=== PATIENT | female | born 1990 | race Caucasian/White ===

== ENCOUNTER 2019-04-13 18:54 | Inpatient (IN) | payer MEDICAID ==
[2019-04-13] MEDS ORDERED: LACTATED RINGER'S 1,000 ML IV (20:46)
[2019-04-13 21:42] LABS: ADD UMIC NO; UR ASCORBIC ACID NEGATIVE (NEGATIVE); UR BILIRUBIN (Dip) NEGATIVE (NEGATIVE); UR BLOOD (Dip) NEGATIVE (NEGATIVE); UR CLARITY CLEAR (CLEAR); UR COLOR COLORLESS (YELLOW); UR GLUCOSE (Dip) 1+ mg/dL (NEGATIVE); UR KETONES (Dip) NEGATIVE (NEGATIVE); UR LEUKOCYTE ESTERASE (Dip) NEGATIVE Leu/ul (NEGATIVE); UR NITRITE (Dip) NEGATIVE (NEGATIVE); UR SPECIFIC GRAVITY (Dip) 1.002 (1.003-1.030); UR TOTAL PROTEIN (Dip) NEGATIVE (NEGATIVE); UR UROBILINOGEN (Dip) NEGATIVE (NEGATIVE)
[2019-04-13 22:44] LABS: ADD MAN DIFF? NO
[2019-04-13 22:48] LABS: WHITE BLOOD COUNT 14.4 10^3/ul (4.8-10.8)
[2019-04-13 22:48] LABS: BASOPHIL # 0.1 10^3/ul (0.0-0.1); BASOPHILS % 0.7 % (0.0-2.0); EOSINOPHILS # 0.1 10^3/ul (0.0-0.5); EOSINOPHILS % 0.8 % (0.0-7.0); HEMOGLOBIN 11.4 g/dl (12.0-16.0); LYMPHOCYTES # 3.6 10^3/ul (0.8-2.9); LYMPHOCYTES % 24.7 % (15.0-51.0); MEAN CORPUSCULAR HEMOGLOBIN 32.7 pg (29.0-33.0); MEAN CORPUSCULAR HGB CONC 33.5 g/dl (32.0-37.0); MEAN CORPUSCULAR VOLUME 97.4 fl (82.0-101.0); MEAN PLATELET VOLUME 10.8 fl (7.4-10.4); MONOCYTE # 1.1 10^3/ul (0.3-0.9); MONOCYTES % 7.7 % (0.0-11.0); NEUTROPHIL # 9.4 10^3/ul (1.6-7.5); NEUTROPHILS % 65.1 % (39.0-77.0); PLATELET COUNT 279 10^3/UL (140-415); RED BLOOD COUNT 3.49 10^6/ul (4.20-5.40); RED CELL DISTRIBUTION WIDTH 13.1 % (11.5-14.5)
[2019-04-13 23:08] LABS: PARTIAL THROMBOPLASTIN TIME 29.1 Sec (23.0-35.0); PROTIME 13.3 Sec (11.9-14.9)
[2019-04-13 23:11] LABS: ALANINE AMINOTRANSFERASE 25 IU/L (13-69); ALBUMIN 3.4 g/dl (3.3-4.9); ALBUMIN/GLOBULIN RATIO 0.97; ALKALINE PHOSPHATASE 78 IU/L (42-121); ANION GAP 7 (5-13); ASPARTATE AMINO TRANSFERASE 31 IU/L (15-46); BILIRUBIN,INDIRECT 0.4 mg/dl (0-1.1); BILIRUBIN,TOTAL 0.4 mg/dl (0.2-1.3); BLOOD UREA NITROGEN 5 mg/dl (7-20); CALCIUM 8.7 mg/dl (8.4-10.2); CARBON DIOXIDE 24 mmol/L (21-31); CHLORIDE 108 mmol/L (97-110); CREATININE 0.47 mg/dl (0.44-1.00); Estimated GFR > 60 mL/min (>60); GLUCOSE 64 mg/dl (70-220); POTASSIUM 3.7 mmol/L (3.5-5.1); SODIUM 139 mmol/L (135-144); TOTAL PROTEIN 6.9 g/dl (6.1-8.1); URIC ACID 2.4 mg/dl (3.1-7.9)
[2019-04-14] MEDS ORDERED: ASPIRIN 81 MG TAB PO (09:00)
[2019-04-14] MEDS: PRENATAL VITAMIN PO (10:50)
[2019-04-14] MEDS: ASPIRIN (EC) 81 MG TAB PO (10:55)
[2019-04-14] MEDS ORDERED: ACETAMINOPHEN 325 MG TAB PO (16:30)
[2019-04-14 23:16] LABS: COLLECTION PERIOD 24 hrs
[2019-04-14 23:38] LABS: COLLECTION PERIOD 24 hrs; CREATININE CLEARANCE 168.6 mls/min (84.0-162.0); CREATININE,URINE RANDOM 23.78 mg/dl (20-320); SCRET 0.47 mg/dl (0.44-1.00); VOLUME 4800 ml/24hrs
[2019-04-14 23:39] LABS: VOLUME 4800 mls
[2019-04-15 07:09] LABS: GTT FASTING GLUCOSE 76 mg/dl (70-110)
[2019-04-15 07:50] LABS: GTT FASTING URINE NEGATIVE (NEGATIVE)
[2019-04-15 07:54] LABS: GLUCOSE 1 HOUR 107 mg/dl
[2019-04-15] MEDS: ASPIRIN (EC) 81 MG TAB PO (09:50)
[2019-04-15] MEDS: PRENATAL VITAMIN PO (09:50)
[2019-04-15] MEDS: BETAMET NA PHOS/AC(6 MG/ML) 2 ML INJ SYG IM (09:51)
[2019-04-16] MEDS: PRENATAL VITAMIN PO (08:56)
[2019-04-16] MEDS: BETAMET NA PHOS/AC(6 MG/ML) 2 ML INJ SYG IM (10:12)
[2019-04-16] MEDS: ASPIRIN (EC) 81 MG TAB PO (10:13)
[2019-04-17 08:43] LABS: WHITE BLOOD COUNT 28.9 10^3/ul (4.8-10.8)
[2019-04-17 08:43] LABS: ABNORMAL IP MESSAGE 1; HEMATOCRIT 33.5 % (37.0-47.0); HEMOGLOBIN 11.9 g/dl (12.0-16.0); MEAN CORPUSCULAR HEMOGLOBIN 33.9 pg (29.0-33.0); MEAN CORPUSCULAR HGB CONC 35.5 g/dl (32.0-37.0); MEAN CORPUSCULAR VOLUME 95.4 fl (82.0-101.0); MEAN PLATELET VOLUME 10.6 fl (7.4-10.4); PLATELET COUNT 278 10^3/UL (140-415); RED BLOOD COUNT 3.51 10^6/ul (4.20-5.40); RED CELL DISTRIBUTION WIDTH 13.1 % (11.5-14.5)
[2019-04-17 08:48] LABS: POSITIVE DIFF @See below
[2019-04-17 08:49] LABS: ADD MAN DIFF? YES; PATH REVIEW? YES
[2019-04-17 09:07] LABS: ALANINE AMINOTRANSFERASE 27 IU/L (13-69); ALBUMIN 3.5 g/dl (3.3-4.9); ALKALINE PHOSPHATASE 88 IU/L (42-121); ANION GAP 9 (5-13); ASPARTATE AMINO TRANSFERASE 24 IU/L (15-46); BILIRUBIN,INDIRECT 0.3 mg/dl (0-1.1); BILIRUBIN,TOTAL 0.3 mg/dl (0.2-1.3); BLOOD UREA NITROGEN 9 mg/dl (7-20); CALCIUM 9.2 mg/dl (8.4-10.2); CARBON DIOXIDE 23 mmol/L (21-31); CHLORIDE 106 mmol/L (97-110); CREATININE 0.55 mg/dl (0.44-1.00); Estimated GFR > 60 mL/min (>60); GLUCOSE 106 mg/dl (70-220); POTASSIUM 4.1 mmol/L (3.5-5.1); SODIUM 138 mmol/L (135-144); URIC ACID 2.9 mg/dl (3.1-7.9)
[2019-04-17] MEDS: PRENATAL VITAMIN PO (09:08)
[2019-04-17] MEDS: ASPIRIN (EC) 81 MG TAB PO (09:09)
[2019-04-17 10:18] LABS: BAND NEUTROPHILS #M 0.5 10^3/ul (0.0-0.6); BAND NEUTROPHILS % (M) 2 % (0-4); LYMPHOCYTES #M 2.8 10^3/ul (0.8-2.9); LYMPHOCYTES % (M) 10 % (15-51); MONOCYTE #M 0.5 10^3/ul (0.3-0.9); MONOCYTES % (M) 2 % (0-11); PLATELET ESTIMATE NORMAL; POLYCHROMASIA 1+ (0-0); SEGMENTED NEUTROPHILS (M) % 86 % (39-77); SMUDGE%M 7 % (0-0)
[2019-04-17] MEDS: SENNA TAB PO (22:29)
[2019-04-18] MEDS: ASPIRIN (EC) 81 MG TAB PO (10:05)
[2019-04-18] MEDS: PRENATAL VITAMIN PO (10:05)
[2019-04-19] MEDS ORDERED: DIPHENHYDRAMINE 50 MG CAP PO (04:51)
[2019-04-19] MEDS: DIPHENHYDRAMINE 50 MG CAP PO (05:09)
[2019-04-19 05:46] LABS: ADD MAN DIFF? NO
[2019-04-19 05:47] LABS: WHITE BLOOD COUNT 17.2 10^3/ul (4.8-10.8)
[2019-04-19 05:47] LABS: ABNORMAL IP MESSAGE 1; BASOPHIL # 0.1 10^3/ul (0.0-0.1); BASOPHILS % 0.6 % (0.0-2.0); EOSINOPHILS # 0.1 10^3/ul (0.0-0.5); EOSINOPHILS % 0.5 % (0.0-7.0); LYMPHOCYTES # 3.2 10^3/ul (0.8-2.9); LYMPHOCYTES % 18.8 % (15.0-51.0); MEAN CORPUSCULAR HEMOGLOBIN 33.1 pg (29.0-33.0); MEAN CORPUSCULAR HGB CONC 34.3 g/dl (32.0-37.0); MEAN CORPUSCULAR VOLUME 96.4 fl (82.0-101.0); MEAN PLATELET VOLUME 10.6 fl (7.4-10.4); MONOCYTE # 1.8 10^3/ul (0.3-0.9); MONOCYTES % 10.3 % (0.0-11.0); NEUTROPHIL # 11.5 10^3/ul (1.6-7.5); NEUTROPHILS % 66.8 % (39.0-77.0); PLATELET COUNT 287 10^3/UL (140-415); RED BLOOD COUNT 3.63 10^6/ul (4.20-5.40); RED CELL DISTRIBUTION WIDTH 13.1 % (11.5-14.5)
[2019-04-19 05:48] LABS: POSITIVE DIFF @See below
[2019-04-19 06:18] LABS: ALANINE AMINOTRANSFERASE 26 IU/L (13-69); ALBUMIN 3.4 g/dl (3.3-4.9); ALBUMIN/GLOBULIN RATIO 0.91; ALKALINE PHOSPHATASE 89 IU/L (42-121); ANION GAP 7 (5-13); ASPARTATE AMINO TRANSFERASE 24 IU/L (15-46); BILIRUBIN,INDIRECT 0.3 mg/dl (0-1.1); BILIRUBIN,TOTAL 0.3 mg/dl (0.2-1.3); BLOOD UREA NITROGEN 8 mg/dl (7-20); CALCIUM 8.7 mg/dl (8.4-10.2); CARBON DIOXIDE 26 mmol/L (21-31); CHLORIDE 105 mmol/L (97-110); CREATININE 0.58 mg/dl (0.44-1.00); Estimated GFR > 60 mL/min (>60); GLUCOSE 87 mg/dl (70-220); POTASSIUM 4.3 mmol/L (3.5-5.1); SODIUM 138 mmol/L (135-144); TOTAL PROTEIN 7.1 g/dl (6.1-8.1); URIC ACID 2.6 mg/dl (3.1-7.9)
[2019-04-19] MEDS: PRENATAL VITAMIN PO (09:17)
[2019-04-19] MEDS: ASPIRIN (EC) 81 MG TAB PO (09:17)
[2019-04-19 14:31] LABS: ADD UMIC NO; UR ASCORBIC ACID NEGATIVE (NEGATIVE); UR BILIRUBIN (Dip) NEGATIVE (NEGATIVE); UR BLOOD (Dip) NEGATIVE (NEGATIVE); UR CLARITY CLEAR (CLEAR); UR COLOR STRAW (YELLOW); UR GLUCOSE (Dip) 2+ mg/dL (NEGATIVE); UR KETONES (Dip) NEGATIVE (NEGATIVE); UR LEUKOCYTE ESTERASE (Dip) NEGATIVE Leu/ul (NEGATIVE); UR NITRITE (Dip) NEGATIVE (NEGATIVE); UR SPECIFIC GRAVITY (Dip) 1.003 (1.003-1.030); UR TOTAL PROTEIN (Dip) NEGATIVE (NEGATIVE); UR UROBILINOGEN (Dip) NEGATIVE (NEGATIVE)
== END 2019-04-19 20:05 | disposition home or self-care (01) | DRG 833 ==
LOC: OBT 18:54 → L-D 18:54 → OBT 20:40 → L-D 20:40
DX: O13.2 Gestational [pregnancy-induced] hypertension without significant proteinuria, second trimester (principal); Z3A.24 24 weeks gestation of pregnancy
CPT/HCPCS: 76815; 76817; 80053; 81003; 82575; 82731; 82950; 82951; 84156; 84560; 85025; 85384; 85610; 85730

== ENCOUNTER 2019-05-11 18:37 | Outpatient (CLI) | payer MEDICAID | END 2019-05-11 22:05 | disposition home or self-care (01) | LOC: OBT 18:37 → L-D 18:37 → OBT 22:05 | DX: O36.8130 Decreased fetal movements, third trimester, not applicable or unspecified (principal); O16.3 Unspecified maternal hypertension, third trimester; Z3A.28 28 weeks gestation of pregnancy | CPT/HCPCS: 76818 ==

== ENCOUNTER 2019-06-01 18:25 | Inpatient (IN) | payer MEDICAID ==
[2019-06-01 20:15] LABS: RUPTURE FETAL MEMBRANES NEGATIVE (NEGATIVE)
[2019-06-01 22:16] LABS: ADD MAN DIFF? NO
[2019-06-01 22:23] LABS: BASOPHIL # 0.1 10^3/ul (0.0-0.1); BASOPHILS % 0.6 % (0.0-2.0); EOSINOPHILS # 0.1 10^3/ul (0.0-0.5); EOSINOPHILS % 0.6 % (0.0-7.0); HEMATOCRIT 36.2 % (37.0-47.0); HEMOGLOBIN 12.5 g/dl (12.0-16.0); LYMPHOCYTES # 3.4 10^3/ul (0.8-2.9); LYMPHOCYTES % 23.1 % (15.0-51.0); MEAN CORPUSCULAR HEMOGLOBIN 33.8 pg (29.0-33.0); MEAN CORPUSCULAR HGB CONC 34.5 g/dl (32.0-37.0); MEAN CORPUSCULAR VOLUME 97.8 fl (82.0-101.0); MEAN PLATELET VOLUME 11.5 fl (7.4-10.4); MONOCYTE # 1.3 10^3/ul (0.3-0.9); MONOCYTES % 8.8 % (0.0-11.0); NEUTROPHIL # 9.6 10^3/ul (1.6-7.5); NEUTROPHILS % 65.5 % (39.0-77.0); PLATELET COUNT 247 10^3/UL (140-415); RED CELL DISTRIBUTION WIDTH 12.5 % (11.5-14.5)
[2019-06-01 22:23] LABS: WHITE BLOOD COUNT 14.6 10^3/ul (4.8-10.8)
[2019-06-01 22:41] LABS: ALANINE AMINOTRANSFERASE 18 IU/L (13-69); ALBUMIN 3.3 g/dl (3.3-4.9); ALBUMIN/GLOBULIN RATIO 0.89; ALKALINE PHOSPHATASE 153 IU/L (42-121); ANION GAP 7 (5-13); ASPARTATE AMINO TRANSFERASE 23 IU/L (15-46); BILIRUBIN,INDIRECT 0.2 mg/dl (0-1.1); BILIRUBIN,TOTAL 0.2 mg/dl (0.2-1.3); BLOOD UREA NITROGEN 7 mg/dl (7-20); CALCIUM 9.1 mg/dl (8.4-10.2); CARBON DIOXIDE 24 mmol/L (21-31); CHLORIDE 105 mmol/L (97-110); CREATININE 0.66 mg/dl (0.44-1.00); Estimated GFR > 60 mL/min (>60); GLUCOSE 86 mg/dl (70-220); POTASSIUM 3.7 mmol/L (3.5-5.1); SODIUM 136 mmol/L (135-144); URIC ACID 4.8 mg/dl (3.1-7.9)
[2019-06-01 22:47] LABS: INR 0.92; PARTIAL THROMBOPLASTIN TIME 28.9 Sec (23.0-35.0); PROTIME 12.5 Sec (11.9-14.9)
[2019-06-02] MEDS: ACETAMINOPHEN 325 MG TAB PO (02:25)
[2019-06-02] MEDS: DIPHENHYDRAMINE 25 MG CAP PO (02:25)
[2019-06-02] MEDS ORDERED: DIPHENHYDRAMINE 50 MG CAP PO (21:00)
[2019-06-02] MEDS: DIPHENHYDRAMINE 50 MG CAP PO (22:08)
[2019-06-02 23:34] LABS: COLLECTION PERIOD 24 hrs
[2019-06-02 23:44] LABS: COLLECTION PERIOD 24 hrs; SCRET 0.66 mg/dl (0.44-1.00)
[2019-06-02 23:45] LABS: VOLUME 4000 ml/24hrs; VOLUME 4000 mls
[2019-06-02 23:46] LABS: CREATININE CLEARANCE 104.9 mls/min (84.0-162.0); CREATININE,URINE RANDOM 24.92 mg/dl (20-320)
[2019-06-03 06:40] LABS: ADD MAN DIFF? NO
[2019-06-03 06:54] LABS: WHITE BLOOD COUNT 14.6 10^3/ul (4.8-10.8)
[2019-06-03 06:54] LABS: BASOPHIL # 0.1 10^3/ul (0.0-0.1); BASOPHILS % 0.6 % (0.0-2.0); EOSINOPHILS # 0.1 10^3/ul (0.0-0.5); EOSINOPHILS % 0.7 % (0.0-7.0); HEMATOCRIT 36.4 % (37.0-47.0); HEMOGLOBIN 12.5 g/dl (12.0-16.0); LYMPHOCYTES # 3.4 10^3/ul (0.8-2.9); LYMPHOCYTES % 23.5 % (15.0-51.0); MEAN CORPUSCULAR HEMOGLOBIN 33.7 pg (29.0-33.0); MEAN CORPUSCULAR HGB CONC 34.3 g/dl (32.0-37.0); MEAN CORPUSCULAR VOLUME 98.1 fl (82.0-101.0); MEAN PLATELET VOLUME 11.4 fl (7.4-10.4); MONOCYTE # 1.5 10^3/ul (0.3-0.9); MONOCYTES % 10.3 % (0.0-11.0); NEUTROPHIL # 9.3 10^3/ul (1.6-7.5); NEUTROPHILS % 63.5 % (39.0-77.0); PLATELET COUNT 233 10^3/UL (140-415); RED BLOOD COUNT 3.71 10^6/ul (4.20-5.40); RED CELL DISTRIBUTION WIDTH 12.3 % (11.5-14.5)
[2019-06-03 07:21] LABS: URIC ACID 5.1 mg/dl (3.1-7.9)
[2019-06-03] MEDS: PRENATAL VITAMIN PO (08:44)
[2019-06-03 09:27] LABS: ALANINE AMINOTRANSFERASE 20 IU/L (13-69); ALBUMIN 3.1 g/dl (3.3-4.9); ALBUMIN/GLOBULIN RATIO 0.81; ALKALINE PHOSPHATASE 157 IU/L (42-121); ANION GAP 6 (5-13); ASPARTATE AMINO TRANSFERASE 30 IU/L (15-46); BILIRUBIN,INDIRECT 0.3 mg/dl (0-1.1); BILIRUBIN,TOTAL 0.3 mg/dl (0.2-1.3); BLOOD UREA NITROGEN 8 mg/dl (7-20); CALCIUM 8.7 mg/dl (8.4-10.2); CARBON DIOXIDE 24 mmol/L (21-31); CHLORIDE 104 mmol/L (97-110); CREATININE 0.72 mg/dl (0.44-1.00); Estimated GFR > 60 mL/min (>60); GLUCOSE 70 mg/dl (70-220); POTASSIUM 4.2 mmol/L (3.5-5.1); SODIUM 134 mmol/L (135-144); TOTAL PROTEIN 6.9 g/dl (6.1-8.1)
[2019-06-04] MEDS: PRENATAL VITAMIN PO (09:22)
[2019-06-04] MEDS: DIPHENHYDRAMINE 50 MG CAP PO (21:11)
[2019-06-05 07:38] LABS: ADD MAN DIFF? NO
[2019-06-05 07:41] LABS: BASOPHIL # 0.1 10^3/ul (0.0-0.1); BASOPHILS % 0.7 % (0.0-2.0); EOSINOPHILS # 0.1 10^3/ul (0.0-0.5); HEMATOCRIT 38.4 % (37.0-47.0); HEMOGLOBIN 13.2 g/dl (12.0-16.0); LYMPHOCYTES % 22.1 % (15.0-51.0); MEAN CORPUSCULAR HEMOGLOBIN 33.5 pg (29.0-33.0); MEAN CORPUSCULAR HGB CONC 34.4 g/dl (32.0-37.0); MEAN CORPUSCULAR VOLUME 97.5 fl (82.0-101.0); MEAN PLATELET VOLUME 11.3 fl (7.4-10.4); MONOCYTE # 1.4 10^3/ul (0.3-0.9); MONOCYTES % 10.1 % (0.0-11.0); NEUTROPHIL # 8.7 10^3/ul (1.6-7.5); NEUTROPHILS % 64.2 % (39.0-77.0); PLATELET COUNT 236 10^3/UL (140-415); RED BLOOD COUNT 3.94 10^6/ul (4.20-5.40); RED CELL DISTRIBUTION WIDTH 12.4 % (11.5-14.5)
[2019-06-05 07:41] LABS: WHITE BLOOD COUNT 13.5 10^3/ul (4.8-10.8)
[2019-06-05 08:02] LABS: ALANINE AMINOTRANSFERASE 17 IU/L (13-69); ALBUMIN 3.2 g/dl (3.3-4.9); ALBUMIN/GLOBULIN RATIO 0.84; ALKALINE PHOSPHATASE 157 IU/L (42-121); ANION GAP 8 (5-13); ASPARTATE AMINO TRANSFERASE 23 IU/L (15-46); BILIRUBIN,INDIRECT 0.4 mg/dl (0-1.1); BILIRUBIN,TOTAL 0.4 mg/dl (0.2-1.3); BLOOD UREA NITROGEN 8 mg/dl (7-20); CALCIUM 8.9 mg/dl (8.4-10.2); CARBON DIOXIDE 24 mmol/L (21-31); CHLORIDE 105 mmol/L (97-110); CREATININE 0.72 mg/dl (0.44-1.00); Estimated GFR > 60 mL/min (>60); GLUCOSE 72 mg/dl (70-220); POTASSIUM 3.9 mmol/L (3.5-5.1); SODIUM 137 mmol/L (135-144); URIC ACID 5.4 mg/dl (3.1-7.9)
[2019-06-05] MEDS: PRENATAL VITAMIN PO (09:28)
[2019-06-06] MEDS: ACETAMINOPHEN 500 MG TAB PO (06:46)
[2019-06-06] MEDS: PRENATAL VITAMIN PO (09:12)
[2019-06-06] MEDS: DIPHENHYDRAMINE 25 MG CAP PO (22:09)
[2019-06-07] MEDS: PRENATAL VITAMIN PO (08:34)
[2019-06-08 05:44] LABS: ADD MAN DIFF? NO
[2019-06-08 05:48] LABS: WHITE BLOOD COUNT 12.5 10^3/ul (4.8-10.8)
[2019-06-08 05:48] LABS: BASOPHIL # 0.1 10^3/ul (0.0-0.1); BASOPHILS % 0.9 % (0.0-2.0); EOSINOPHILS # 0.1 10^3/ul (0.0-0.5); EOSINOPHILS % 1.1 % (0.0-7.0); HEMATOCRIT 38.8 % (37.0-47.0); HEMOGLOBIN 13.2 g/dl (12.0-16.0); LYMPHOCYTES # 3.3 10^3/ul (0.8-2.9); MEAN CORPUSCULAR HEMOGLOBIN 33.1 pg (29.0-33.0); MEAN CORPUSCULAR VOLUME 97.2 fl (82.0-101.0); MEAN PLATELET VOLUME 11.4 fl (7.4-10.4); MONOCYTE # 1.1 10^3/ul (0.3-0.9); MONOCYTES % 8.9 % (0.0-11.0); NEUTROPHIL # 7.7 10^3/ul (1.6-7.5); NEUTROPHILS % 61.7 % (39.0-77.0); PLATELET COUNT 250 10^3/UL (140-415); RED BLOOD COUNT 3.99 10^6/ul (4.20-5.40); RED CELL DISTRIBUTION WIDTH 12.2 % (11.5-14.5)
[2019-06-08 06:10] LABS: ALANINE AMINOTRANSFERASE 21 IU/L (13-69); ALBUMIN 3.4 g/dl (3.3-4.9); ALBUMIN/GLOBULIN RATIO 0.97; ALKALINE PHOSPHATASE 169 IU/L (42-121); ANION GAP 7 (5-13); ASPARTATE AMINO TRANSFERASE 25 IU/L (15-46); BILIRUBIN,INDIRECT 0.3 mg/dl (0-1.1); BILIRUBIN,TOTAL 0.3 mg/dl (0.2-1.3); BLOOD UREA NITROGEN 12 mg/dl (7-20); CARBON DIOXIDE 23 mmol/L (21-31); CHLORIDE 107 mmol/L (97-110); CREATININE 0.91 mg/dl (0.44-1.00); Estimated GFR > 60 mL/min (>60); GLUCOSE 75 mg/dl (70-220); POTASSIUM 4.1 mmol/L (3.5-5.1); SODIUM 137 mmol/L (135-144); TOTAL PROTEIN 6.9 g/dl (6.1-8.1); URIC ACID 6.2 mg/dl (3.1-7.9)
[2019-06-08] MEDS: PRENATAL VITAMIN PO (09:25)
[2019-06-08] MEDS ORDERED: SPECIAL NON-STANDARD MEDICATION PO (21:00)
[2019-06-08] MEDS: DOXYLAMINE SUCCINATE 25 MG TABLET PO (21:39)
[2019-06-09] MEDS: PRENATAL VITAMIN PO (08:56)
[2019-06-09] MEDS: DOXYLAMINE SUCCINATE 25 MG TABLET PO (20:38)
[2019-06-10] MEDS: PRENATAL VITAMIN PO (08:59)
[2019-06-10] MEDS: DOXYLAMINE SUCCINATE 25 MG TABLET PO (21:04)
[2019-06-11 06:07] LABS: ADD MAN DIFF? NO
[2019-06-11 06:11] LABS: BASOPHIL # 0.1 10^3/ul (0.0-0.1); BASOPHILS % 0.9 % (0.0-2.0); EOSINOPHILS # 0.1 10^3/ul (0.0-0.5); HEMATOCRIT 38.9 % (37.0-47.0); HEMOGLOBIN 13.2 g/dl (12.0-16.0); LYMPHOCYTES # 3.4 10^3/ul (0.8-2.9); LYMPHOCYTES % 25.4 % (15.0-51.0); MEAN CORPUSCULAR HEMOGLOBIN 33.3 pg (29.0-33.0); MEAN CORPUSCULAR HGB CONC 33.9 g/dl (32.0-37.0); MEAN CORPUSCULAR VOLUME 98.2 fl (82.0-101.0); MEAN PLATELET VOLUME 11.3 fl (7.4-10.4); MONOCYTE # 1.2 10^3/ul (0.3-0.9); MONOCYTES % 8.7 % (0.0-11.0); NEUTROPHIL # 8.4 10^3/ul (1.6-7.5); NEUTROPHILS % 62.4 % (39.0-77.0); PLATELET COUNT 256 10^3/UL (140-415); RED BLOOD COUNT 3.96 10^6/ul (4.20-5.40); RED CELL DISTRIBUTION WIDTH 12.3 % (11.5-14.5)
[2019-06-11 06:11] LABS: WHITE BLOOD COUNT 13.5 10^3/ul (4.8-10.8)
[2019-06-11 06:37] LABS: ALANINE AMINOTRANSFERASE 49 IU/L (13-69); ALBUMIN 2.8 g/dl (3.3-4.9); ALBUMIN/GLOBULIN RATIO 0.75; ALKALINE PHOSPHATASE 178 IU/L (42-121); ANION GAP 6 (5-13); ASPARTATE AMINO TRANSFERASE 46 IU/L (15-46); BILIRUBIN,INDIRECT 0.3 mg/dl (0-1.1); BILIRUBIN,TOTAL 0.3 mg/dl (0.2-1.3); BLOOD UREA NITROGEN 10 mg/dl (7-20); CALCIUM 8.9 mg/dl (8.4-10.2); CARBON DIOXIDE 25 mmol/L (21-31); CHLORIDE 107 mmol/L (97-110); CREATININE 0.89 mg/dl (0.44-1.00); Estimated GFR > 60 mL/min (>60); GLUCOSE 75 mg/dl (70-220); POTASSIUM 4.3 mmol/L (3.5-5.1); SODIUM 138 mmol/L (135-144); TOTAL PROTEIN 6.5 g/dl (6.1-8.1); URIC ACID 6.4 mg/dl (3.1-7.9)
[2019-06-11] MEDS: PRENATAL VITAMIN PO (09:49)
[2019-06-11] MEDS: DOXYLAMINE SUCCINATE 25 MG TABLET PO (21:12)
[2019-06-12] MEDS: PRENATAL VITAMIN PO (09:20)
[2019-06-12] MEDS: DOXYLAMINE SUCCINATE 25 MG TABLET PO (21:58)
[2019-06-13] MEDS: PRENATAL VITAMIN PO (10:07)
[2019-06-13] MEDS: LABETALOL 200 MG TAB PO ×2 (10:08→21:37)
[2019-06-13 10:24] LABS: ADD MAN DIFF? NO
[2019-06-13 10:34] LABS: BASOPHIL # 0.1 10^3/ul (0.0-0.1); BASOPHILS % 0.8 % (0.0-2.0); EOSINOPHILS # 0.1 10^3/ul (0.0-0.5); HEMATOCRIT 39.9 % (37.0-47.0); HEMOGLOBIN 13.5 g/dl (12.0-16.0); LYMPHOCYTES # 3.4 10^3/ul (0.8-2.9); MEAN CORPUSCULAR HEMOGLOBIN 33.1 pg (29.0-33.0); MEAN CORPUSCULAR HGB CONC 33.8 g/dl (32.0-37.0); MEAN CORPUSCULAR VOLUME 97.8 fl (82.0-101.0); MEAN PLATELET VOLUME 11.2 fl (7.4-10.4); MONOCYTE # 1.2 10^3/ul (0.3-0.9); MONOCYTES % 8.7 % (0.0-11.0); NEUTROPHIL # 8.4 10^3/ul (1.6-7.5); NEUTROPHILS % 62.4 % (39.0-77.0); PLATELET COUNT 266 10^3/UL (140-415); RED BLOOD COUNT 4.08 10^6/ul (4.20-5.40); RED CELL DISTRIBUTION WIDTH 12.2 % (11.5-14.5)
[2019-06-13 10:34] LABS: WHITE BLOOD COUNT 13.4 10^3/ul (4.8-10.8)
[2019-06-13] MEDS: BETAMET NA PHOS/AC(6 MG/ML) 2 ML INJ SYG IM (10:34)
[2019-06-13 10:49] LABS: ALANINE AMINOTRANSFERASE 92 IU/L (13-69); ALBUMIN 2.8 g/dl (3.3-4.9); ALBUMIN/GLOBULIN RATIO 0.73; ALKALINE PHOSPHATASE 190 IU/L (42-121); ANION GAP 7 (5-13); ASPARTATE AMINO TRANSFERASE 67 IU/L (15-46); BILIRUBIN,INDIRECT 0.3 mg/dl (0-1.1); BILIRUBIN,TOTAL 0.3 mg/dl (0.2-1.3); BLOOD UREA NITROGEN 9 mg/dl (7-20); CALCIUM 8.8 mg/dl (8.4-10.2); CARBON DIOXIDE 23 mmol/L (21-31); CHLORIDE 107 mmol/L (97-110); CREATININE 0.86 mg/dl (0.44-1.00); Estimated GFR > 60 mL/min (>60); GLUCOSE 91 mg/dl (70-220); POTASSIUM 3.6 mmol/L (3.5-5.1); SODIUM 137 mmol/L (135-144); TOTAL PROTEIN 6.6 g/dl (6.1-8.1); URIC ACID 6.4 mg/dl (3.1-7.9)
[2019-06-13 17:26] LABS: ADD MAN DIFF? NO
[2019-06-13 17:29] LABS: WHITE BLOOD COUNT 14.3 10^3/ul (4.8-10.8)
[2019-06-13 17:29] LABS: BASOPHILS % 0.2 % (0.0-2.0); HEMATOCRIT 38.7 % (37.0-47.0); HEMOGLOBIN 13.1 g/dl (12.0-16.0); LYMPHOCYTES # 1.2 10^3/ul (0.8-2.9); LYMPHOCYTES % 8.5 % (15.0-51.0); MEAN CORPUSCULAR HEMOGLOBIN 32.8 pg (29.0-33.0); MEAN CORPUSCULAR HGB CONC 33.9 g/dl (32.0-37.0); MEAN PLATELET VOLUME 11.2 fl (7.4-10.4); MONOCYTE # 0.2 10^3/ul (0.3-0.9); MONOCYTES % 1.1 % (0.0-11.0); NEUTROPHIL # 12.5 10^3/ul (1.6-7.5); NEUTROPHILS % 87.7 % (39.0-77.0); PLATELET COUNT 261 10^3/UL (140-415); RED BLOOD COUNT 3.99 10^6/ul (4.20-5.40); RED CELL DISTRIBUTION WIDTH 12.3 % (11.5-14.5)
[2019-06-13 17:49] LABS: ALANINE AMINOTRANSFERASE 102 IU/L (13-69); ALBUMIN 3.3 g/dl (3.3-4.9); ALBUMIN/GLOBULIN RATIO 0.89; ALKALINE PHOSPHATASE 192 IU/L (42-121); ANION GAP 9 (5-13); ASPARTATE AMINO TRANSFERASE 84 IU/L (15-46); BILIRUBIN,INDIRECT 0.2 mg/dl (0-1.1); BILIRUBIN,TOTAL 0.2 mg/dl (0.2-1.3); BLOOD UREA NITROGEN 10 mg/dl (7-20); CALCIUM 9.3 mg/dl (8.4-10.2); CARBON DIOXIDE 19 mmol/L (21-31); CHLORIDE 107 mmol/L (97-110); Estimated GFR > 60 mL/min (>60); GLUCOSE 114 mg/dl (70-220); POTASSIUM 4.1 mmol/L (3.5-5.1); SODIUM 135 mmol/L (135-144); URIC ACID 6.4 mg/dl (3.1-7.9)
[2019-06-13] MEDS: DOXYLAMINE SUCCINATE 25 MG TABLET PO (21:37)
[2019-06-14 06:47] LABS: WHITE BLOOD COUNT 31.2 10^3/ul (4.8-10.8)
[2019-06-14 06:47] LABS: ABNORMAL IP MESSAGE 1; HEMATOCRIT 37.4 % (37.0-47.0); HEMOGLOBIN 12.5 g/dl (12.0-16.0); MEAN CORPUSCULAR HGB CONC 33.4 g/dl (32.0-37.0); MEAN CORPUSCULAR VOLUME 98.7 fl (82.0-101.0); MEAN PLATELET VOLUME 11.3 fl (7.4-10.4); PLATELET COUNT 254 10^3/UL (140-415); RED BLOOD COUNT 3.79 10^6/ul (4.20-5.40); RED CELL DISTRIBUTION WIDTH 12.4 % (11.5-14.5)
[2019-06-14 06:52] LABS: ADD MAN DIFF? YES; PATH REVIEW? YES; POSITIVE DIFF @See below
[2019-06-14 07:08] LABS: ALANINE AMINOTRANSFERASE 124 IU/L (13-69); ALBUMIN 2.9 g/dl (3.3-4.9); ALBUMIN/GLOBULIN RATIO 0.78; ALKALINE PHOSPHATASE 189 IU/L (42-121); ANION GAP 8 (5-13); ASPARTATE AMINO TRANSFERASE 99 IU/L (15-46); BILIRUBIN,INDIRECT 0.2 mg/dl (0-1.1); BILIRUBIN,TOTAL 0.2 mg/dl (0.2-1.3); BLOOD UREA NITROGEN 12 mg/dl (7-20); CALCIUM 9.6 mg/dl (8.4-10.2); CARBON DIOXIDE 16 mmol/L (21-31); CHLORIDE 110 mmol/L (97-110); CREATININE 0.87 mg/dl (0.44-1.00); Estimated GFR > 60 mL/min (>60); GLUCOSE 119 mg/dl (70-220); POTASSIUM 4.9 mmol/L (3.5-5.1); SODIUM 134 mmol/L (135-144); TOTAL PROTEIN 6.6 g/dl (6.1-8.1); URIC ACID 6.3 mg/dl (3.1-7.9)
[2019-06-14] MEDS: LABETALOL 200 MG TAB PO ×2 (09:17→21:18)
[2019-06-14] MEDS: PRENATAL VITAMIN PO (09:18)
[2019-06-14 09:27] LABS: ANISOCYTOSIS 1+ (0-0); BAND NEUTROPHILS #M 2.4 10^3/ul (0.0-0.6); BAND NEUTROPHILS % (M) 8 % (0-4); BURR CELLS 2+ (0-0); LYMPHOCYTES #M 2.1 10^3/ul (0.8-2.9); LYMPHOCYTES % (M) 7 % (15-51); METAMYELOCYTES #M 0.9 10^3/ul (0.0-0.0); METAMYELOCYTES %M 3 % (0-0); MONOCYTE #M 0.9 10^3/ul (0.3-0.9); MONOCYTES % (M) 3 % (0-11); PLATELET ESTIMATE NORMAL; POIKILOCYTOSIS 1+ (0-0); POLYCHROMASIA 1+ (0-0); RBC MORPHOLOGY COMMENT @See below; SEG NEUT #M 25.4 10^3/ul (1.6-7.5); SEGMENTED NEUTROPHILS (M) % 79 % (39-77); SMUDGE%M 1 % (0-0); WBC MORPHOLOGY COMMENT @See below
[2019-06-14] MEDS: BETAMET NA PHOS/AC(6 MG/ML) 2 ML INJ SYG IM (11:26)
[2019-06-14] MEDS: DOXYLAMINE SUCCINATE 25 MG TABLET PO (21:24)
[2019-06-15 06:19] LABS: WHITE BLOOD COUNT 32.2 10^3/ul (4.8-10.8)
[2019-06-15 06:19] LABS: ABNORMAL IP MESSAGE 1; HEMATOCRIT 35.3 % (37.0-47.0); HEMOGLOBIN 11.9 g/dl (12.0-16.0); MEAN CORPUSCULAR HEMOGLOBIN 33.8 pg (29.0-33.0); MEAN CORPUSCULAR HGB CONC 33.7 g/dl (32.0-37.0); MEAN CORPUSCULAR VOLUME 100.3 fl (82.0-101.0); MEAN PLATELET VOLUME 11.3 fl (7.4-10.4); NUCLEATED RED BLOOD CELLS% 0.1 /100WBC (0.0-0.0); PLATELET COUNT 253 10^3/UL (140-415); RED BLOOD COUNT 3.52 10^6/ul (4.20-5.40); RED CELL DISTRIBUTION WIDTH 12.5 % (11.5-14.5)
[2019-06-15 06:49] LABS: ADD MAN DIFF? YES; POSITIVE DIFF @See below
[2019-06-15 06:50] LABS: ALANINE AMINOTRANSFERASE 468 IU/L (13-69); ALBUMIN/GLOBULIN RATIO 0.88; ALKALINE PHOSPHATASE 182 IU/L (42-121); ANION GAP 6 (5-13); ASPARTATE AMINO TRANSFERASE 469 IU/L (15-46); BILIRUBIN,INDIRECT 0.1 mg/dl (0-1.1); BILIRUBIN,TOTAL 0.1 mg/dl (0.2-1.3); BLOOD UREA NITROGEN 14 mg/dl (7-20); CALCIUM 9.2 mg/dl (8.4-10.2); CARBON DIOXIDE 19 mmol/L (21-31); CHLORIDE 112 mmol/L (97-110); CREATININE 0.99 mg/dl (0.44-1.00); Estimated GFR > 60 mL/min (>60); GLUCOSE 136 mg/dl (70-220); POTASSIUM 4.6 mmol/L (3.5-5.1); SODIUM 137 mmol/L (135-144); TOTAL PROTEIN 6.4 g/dl (6.1-8.1)
[2019-06-15] MEDS: LABETALOL 200 MG TAB PO (08:41)
[2019-06-15] MEDS: PRENATAL VITAMIN PO (08:41)
[2019-06-15] MEDS ORDERED: MISOPROSTOL 200 MCG TAB PR (10:00)
[2019-06-15] MEDS ORDERED: OXYTOCIN 30 UNITS/LR 500 ML IV (10:00)
[2019-06-15] MEDS ORDERED: METHYLERGONOVINE 0.2 MG INJ IM (10:00)
[2019-06-15 10:55] LABS: ANISOCYTOSIS 1+ (0-0); BAND NEUTROPHILS #M 0.3 10^3/ul (0.0-0.6); BAND NEUTROPHILS % (M) 1 % (0-4); BURR CELLS 2+ (0-0); ERYTHROBLAST% (NRBC) (M) 1 % (0-0); GIANT THROMBO% (M) 1 % (0-0); LYMPHOCYTES #M 3.5 10^3/ul (0.8-2.9); LYMPHOCYTES % (M) 11 % (15-51); METAMYELOCYTES #M 0.3 10^3/ul (0.0-0.0); METAMYELOCYTES %M 1 % (0-0); MONOCYTE #M 1.2 10^3/ul (0.3-0.9); MONOCYTES % (M) 4 % (0-11); PLATELET ESTIMATE NORMAL; POIKILOCYTOSIS 3+ (0-0); REACTIVE LYMPHOCYTES #M 0.3 10^3/ul (0.0-0.0); REACTIVE LYMPHOCYTES% (M) 1 % (0-0); SEG NEUT #M 26.5 10^3/ul (1.6-7.5); SEGMENTED NEUTROPHILS (M) % 82 % (39-77); SMUDGE%M 6 % (0-0)
[2019-06-15] MEDS: LACTATED RINGER'S 1,000 ML IV ×2 (11:15→22:20)
[2019-06-15] MEDS: MAGNESIUM SULFATE 4 GM/100 ML 100 ML IV (11:59)
[2019-06-15] MEDS: MAGNESIUM SULFATE 20 GM/500 ML 500 ML IV (12:27)
[2019-06-15 13:18] LABS: HEPATITIS B SURFACE ANTIGEN NEGATIVE (NEGATIVE)
[2019-06-15 13:34] LABS: INR 0.99; PARTIAL THROMBOPLASTIN TIME 26.5 Sec (23.0-35.0); PROTIME 13.2 Sec (11.9-14.9)
[2019-06-15] MEDS ORDERED: PHENYLephrine (100 MCG/ML) 5ML SYG (18:00)
[2019-06-15] MEDS ORDERED: EPHEDrine 25 MG/5 ML SYG (18:00)
[2019-06-15] MEDS ORDERED: morphine SULFATE/PF (10 MG/10 ML) INJ (18:07)
[2019-06-15] MEDS: CEFAZOLIN 2 GM/50 ML (PMX) 50 ML IVPB (18:18)
[2019-06-15] MEDS ORDERED: AZITHROMYCIN 500MG/NS (PMX) 250 ML (18:23)
[2019-06-15 20:50] LABS: MAGNESIUM 9.5 mg/dl (1.7-2.5)
[2019-06-15] MEDS: OXYTOCIN 30 UNITS/LR 500 ML IV ×2 (20:59→23:26)
[2019-06-15] MEDS: KETOROLAC 30 MG INJ IV (21:24)
[2019-06-15] MEDS: CARBOPROST 250 MCG INJ IM (21:38)
[2019-06-15 21:55] LABS: MAGNESIUM 9.7 mg/dl (1.7-2.5)
[2019-06-15 21:57] LABS: RAPID PLASMA REAGIN NONREACTIVE (NR)
[2019-06-15] MEDS: MISOPROSTOL 200 MCG TAB PO (22:18)
[2019-06-15] MEDS: TRANEXAMIC ACID 1GM/100ML(PMX) 100 ML IVPB (22:18)
[2019-06-16] MEDS: LACTATED RINGER'S 1,000 ML IV ×2 (00:01→10:53)
[2019-06-16] MEDS ORDERED: MAGNESIUM SULFATE 40GM/1000ML 1,000 ML IV (00:05)
[2019-06-16] MEDS: CARBOPROST 250 MCG INJ IM (00:23)
[2019-06-16] MEDS ORDERED: OXYTOCIN 30 UNITS/LR 500 ML IV (00:30)
[2019-06-16] MEDS ORDERED: MISOPROSTOL 200 MCG TAB PR (00:30)
[2019-06-16 00:42] LABS: ADD MAN DIFF? NO
[2019-06-16 00:44] LABS: ABNORMAL IP MESSAGE 1; BASOPHIL # 0.1 10^3/ul (0.0-0.1); BASOPHILS % 0.3 % (0.0-2.0); HEMATOCRIT 34.8 % (37.0-47.0); HEMOGLOBIN 11.2 g/dl (12.0-16.0); LYMPHOCYTES # 2.6 10^3/ul (0.8-2.9); LYMPHOCYTES % 7.2 % (15.0-51.0); MEAN CORPUSCULAR HEMOGLOBIN 33.3 pg (29.0-33.0); MEAN CORPUSCULAR HGB CONC 32.2 g/dl (32.0-37.0); MEAN CORPUSCULAR VOLUME 103.6 fl (82.0-101.0); MEAN PLATELET VOLUME 11.3 fl (7.4-10.4); MONOCYTE # 3.9 10^3/ul (0.3-0.9); MONOCYTES % 10.8 % (0.0-11.0); NEUTROPHIL # 28.2 10^3/ul (1.6-7.5); NEUTROPHILS % 77.2 % (39.0-77.0); NUCLEATED RED BLOOD CELLS # 0.1 10^3/ul (0.0-0.0); NUCLEATED RED BLOOD CELLS% 0.1 /100WBC (0.0-0.0); PLATELET COUNT 278 10^3/UL (140-415); RED BLOOD COUNT 3.36 10^6/ul (4.20-5.40); RED CELL DISTRIBUTION WIDTH 12.5 % (11.5-14.5)
[2019-06-16 00:44] LABS: WHITE BLOOD COUNT 36.5 10^3/ul (4.8-10.8)
[2019-06-16 00:47] LABS: POSITIVE DIFF @See below
[2019-06-16] MEDS: DIPHENHYDRAMINE 50 MG INJ IV (00:57)
[2019-06-16] MEDS ORDERED: HYDROmorphONE 0.5 MG/0.5 ML SYG IV ×2 (01:00)
[2019-06-16] MEDS ORDERED: DIPHENHYDRAMINE 50 MG INJ IV (01:00)
[2019-06-16] MEDS ORDERED: KETOROLAC 30 MG INJ IV (01:00)
[2019-06-16] MEDS ORDERED: FENTAnyl 50 MCG/ML VIAL IV ×3 (01:00)
[2019-06-16] MEDS ORDERED: HYDROmorphONE 1 MG/5 ML IV SYRINGE IV ×3 (01:00)
[2019-06-16] MEDS ORDERED: METOCLOPRAMIDE 10 MG INJ IV (01:00)
[2019-06-16] MEDS ORDERED: NALOXONE (0.4 MG/ML) INJ IV (01:00)
[2019-06-16] MEDS ORDERED: ONDANSETRON 4 MG INJ IV ×2 (01:00)
[2019-06-16] MEDS ORDERED: ALBUTEROL 0.083% (NEB) 2.5 MG/3 ML AMP HHN (01:00)
[2019-06-16] MEDS: DOXYLAMINE SUCCINATE 25 MG TABLET PO ×2 (01:40→21:00)
[2019-06-16] MEDS: OXYTOCIN 30 UNITS/LR 500 ML IV (04:10)
[2019-06-16] MEDS ORDERED: LOPERAMIDE 2 MG CAP PO (07:00)
[2019-06-16 09:06] LABS: ABNORMAL IP MESSAGE 1; HEMATOCRIT 29.5 % (37.0-47.0); HEMOGLOBIN 9.8 g/dl (12.0-16.0); MEAN CORPUSCULAR HEMOGLOBIN 33.4 pg (29.0-33.0); MEAN CORPUSCULAR HGB CONC 33.2 g/dl (32.0-37.0); MEAN CORPUSCULAR VOLUME 100.7 fl (82.0-101.0); MEAN PLATELET VOLUME 11.6 fl (7.4-10.4); NUCLEATED RED BLOOD CELLS% 0.1 /100WBC (0.0-0.0); PLATELET COUNT 242 10^3/UL (140-415); RED BLOOD COUNT 2.93 10^6/ul (4.20-5.40); RED CELL DISTRIBUTION WIDTH 12.7 % (11.5-14.5)
[2019-06-16 09:06] LABS: WHITE BLOOD COUNT 36.5 10^3/ul (4.8-10.8)
[2019-06-16 09:11] LABS: ADD MAN DIFF? YES; POSITIVE DIFF @See below
[2019-06-16 09:33] LABS: ALANINE AMINOTRANSFERASE 691 IU/L (13-69); ALBUMIN 2.2 g/dl (3.3-4.9); ALBUMIN/GLOBULIN RATIO 0.75; ALKALINE PHOSPHATASE 133 IU/L (42-121); ANION GAP 4 (5-13); ASPARTATE AMINO TRANSFERASE 637 IU/L (15-46); BILIRUBIN,INDIRECT 0.3 mg/dl (0-1.1); BILIRUBIN,TOTAL 0.3 mg/dl (0.2-1.3); BLOOD UREA NITROGEN 22 mg/dl (7-20); CALCIUM 7.2 mg/dl (8.4-10.2); CARBON DIOXIDE 23 mmol/L (21-31); CHLORIDE 106 mmol/L (97-110); CREATININE 1.06 mg/dl (0.44-1.00); Estimated GFR > 60 mL/min (>60); GLUCOSE 88 mg/dl (70-220); POTASSIUM 4.4 mmol/L (3.5-5.1); SODIUM 133 mmol/L (135-144); TOTAL PROTEIN 5.1 g/dl (6.1-8.1); URIC ACID 7.3 mg/dl (3.1-7.9)
[2019-06-16] MEDS: SENNA/DOCUSATE NA (8.6MG/50MG) TAB PO ×2 (10:12→22:24)
[2019-06-16 10:38] LABS: ANISOCYTOSIS 1+ (0-0); BAND NEUTROPHILS #M 2.1 10^3/ul (0.0-0.6); BAND NEUTROPHILS % (M) 6 % (0-4); BURR CELLS 3+ (0-0); LYMPHOCYTES #M 2.9 10^3/ul (0.8-2.9); LYMPHOCYTES % (M) 8 % (15-51); MONOCYTE #M 3.2 10^3/ul (0.3-0.9); MONOCYTES % (M) 9 % (0-11); MYELOCYTES #M 0.3 10^3/ul (0.0-0.0); MYELOCYTES % (M) 1 % (0-0); PLATELET ESTIMATE NORMAL; POIKILOCYTOSIS 3+ (0-0); POLYCHROMASIA 1+ (0-0); SEG NEUT #M 28.5 10^3/ul (1.6-7.5); SEGMENTED NEUTROPHILS (M) % 76 % (39-77); SMUDGE%M 3 % (0-0)
[2019-06-16 10:44] LABS: ANISOCYTOSIS 1+ (0-0); BAND NEUTROPHILS #M 0.3 10^3/ul (0.0-0.6); BAND NEUTROPHILS % (M) 1 % (0-4); BURR CELLS 2+ (0-0); LYMPHOCYTES #M 3.6 10^3/ul (0.8-2.9); LYMPHOCYTES % (M) 10 % (15-51); METAMYELOCYTES %M 3 % (0-0); MONOCYTE #M 0.7 10^3/ul (0.3-0.9); MONOCYTES % (M) 2 % (0-11); MYELOCYTES #M 0.7 10^3/ul (0.0-0.0); MYELOCYTES % (M) 2 % (0-0); PLATELET ESTIMATE NORMAL; POIKILOCYTOSIS 1+ (0-0); POLYCHROMASIA 1+ (0-0); REACTIVE LYMPHOCYTES #M 0.3 10^3/ul (0.0-0.0); REACTIVE LYMPHOCYTES% (M) 1 % (0-0); SEG NEUT #M 29.7 10^3/ul (1.6-7.5); SEGMENTED NEUTROPHILS (M) % 81 % (39-77); SMUDGE%M 4 % (0-0)
[2019-06-16 11:27] LABS: MAGNESIUM 4.1 mg/dl (1.7-2.5)
[2019-06-16] MEDS: KETOROLAC 30 MG INJ IV (17:57)
[2019-06-16] MEDS: IBUPROFEN 800 MG TAB PO (22:24)
[2019-06-16] MEDS: OXYCODONE/ACETAMINOPHEN (5/325) TAB PO (23:56)
[2019-06-17] MEDS: IBUPROFEN 800 MG TAB PO ×3 (05:38→21:55)
[2019-06-17] MEDS: SENNA/DOCUSATE NA (8.6MG/50MG) TAB PO ×2 (08:44→21:55)
[2019-06-17] MEDS: DOXYLAMINE SUCCINATE 25 MG TABLET PO (21:55)
[2019-06-18] MEDS: IBUPROFEN 800 MG TAB PO ×3 (05:39→22:10)
[2019-06-18 07:52] LABS: ABNORMAL IP MESSAGE 1; HEMATOCRIT 27.5 % (37.0-47.0); HEMOGLOBIN 9.4 g/dl (12.0-16.0); MEAN CORPUSCULAR HEMOGLOBIN 34.4 pg (29.0-33.0); MEAN CORPUSCULAR HGB CONC 34.2 g/dl (32.0-37.0); MEAN CORPUSCULAR VOLUME 100.7 fl (82.0-101.0); MEAN PLATELET VOLUME 10.7 fl (7.4-10.4); NUCLEATED RED BLOOD CELLS% 0.2 /100WBC (0.0-0.0); PLATELET COUNT 277 10^3/UL (140-415); RED BLOOD COUNT 2.73 10^6/ul (4.20-5.40); RED CELL DISTRIBUTION WIDTH 12.2 % (11.5-14.5)
[2019-06-18 07:52] LABS: WHITE BLOOD COUNT 28.4 10^3/ul (4.8-10.8)
[2019-06-18 07:56] LABS: POSITIVE DIFF @See below
[2019-06-18 07:57] LABS: ADD MAN DIFF? YES
[2019-06-18 08:24] LABS: ALANINE AMINOTRANSFERASE 294 IU/L (13-69); ALBUMIN 2.4 g/dl (3.3-4.9); ALBUMIN/GLOBULIN RATIO 0.77; ALKALINE PHOSPHATASE 120 IU/L (42-121); ANION GAP 2 (5-13); ASPARTATE AMINO TRANSFERASE 91 IU/L (15-46); BILIRUBIN,INDIRECT 0.3 mg/dl (0-1.1); BILIRUBIN,TOTAL 0.3 mg/dl (0.2-1.3); BLOOD UREA NITROGEN 20 mg/dl (7-20); CALCIUM 8.4 mg/dl (8.4-10.2); CARBON DIOXIDE 29 mmol/L (21-31); CHLORIDE 105 mmol/L (97-110); CREATININE 0.83 mg/dl (0.44-1.00); Estimated GFR > 60 mL/min (>60); GLUCOSE 75 mg/dl (70-220); POTASSIUM 3.9 mmol/L (3.5-5.1); SODIUM 136 mmol/L (135-144); TOTAL PROTEIN 5.5 g/dl (6.1-8.1)
[2019-06-18] MEDS ORDERED: DIPHTH/TET/ACEL PERTUSS (ADULT) 0.5 ML VIAL IM* (09:00)
[2019-06-18] MEDS: SENNA/DOCUSATE NA (8.6MG/50MG) TAB PO ×2 (09:20→22:10)
[2019-06-18 09:58] LABS: ANISOCYTOSIS 1+ (0-0); BAND NEUTROPHILS #M 0.2 10^3/ul (0.0-0.6); BAND NEUTROPHILS % (M) 1 % (0-4); LYMPHOCYTES #M 6.2 10^3/ul (0.8-2.9); LYMPHOCYTES % (M) 22 % (15-51); METAMYELOCYTES #M 0.2 10^3/ul (0.0-0.0); METAMYELOCYTES %M 1 % (0-0); MONOCYTE #M 2.2 10^3/ul (0.3-0.9); MONOCYTES % (M) 8 % (0-11); PLATELET ESTIMATE NORMAL; POIKILOCYTOSIS 3+ (0-0); REACTIVE LYMPHOCYTES #M 1.1 10^3/ul (0.0-0.0); REACTIVE LYMPHOCYTES% (M) 4 % (0-0); SEG NEUT #M 18.2 10^3/ul (1.6-7.5); SEGMENTED NEUTROPHILS (M) % 64 % (39-77); SMUDGE%M 23 % (0-0)
[2019-06-18] MEDS: NIFEdipine (XL) 30 MG TAB PO (21:09)
[2019-06-18] MEDS: DOXYLAMINE SUCCINATE 25 MG TABLET PO (22:10)
[2019-06-19] MEDS: IBUPROFEN 800 MG TAB PO ×3 (05:57→21:14)
[2019-06-19] MEDS: LABETALOL 200 MG TAB PO (08:16)
[2019-06-19 08:27] LABS: ABNORMAL IP MESSAGE 1; HEMATOCRIT 31.2 % (37.0-47.0); HEMOGLOBIN 10.4 g/dl (12.0-16.0); MEAN CORPUSCULAR HGB CONC 33.3 g/dl (32.0-37.0); NUCLEATED RED BLOOD CELLS% 0.2 /100WBC (0.0-0.0); PLATELET COUNT 360 10^3/UL (140-415); RED BLOOD COUNT 3.15 10^6/ul (4.20-5.40); RED CELL DISTRIBUTION WIDTH 12.1 % (11.5-14.5)
[2019-06-19 08:28] LABS: ADD MAN DIFF? YES; POSITIVE DIFF @See below
[2019-06-19 08:57] LABS: ALANINE AMINOTRANSFERASE 197 IU/L (13-69); ALBUMIN 2.9 g/dl (3.3-4.9); ALBUMIN/GLOBULIN RATIO 0.87; ALKALINE PHOSPHATASE 127 IU/L (42-121); ANION GAP 4 (5-13); ASPARTATE AMINO TRANSFERASE 43 IU/L (15-46); BILIRUBIN,INDIRECT 0.2 mg/dl (0-1.1); BILIRUBIN,TOTAL 0.2 mg/dl (0.2-1.3); BLOOD UREA NITROGEN 14 mg/dl (7-20); CALCIUM 8.4 mg/dl (8.4-10.2); CARBON DIOXIDE 31 mmol/L (21-31); CHLORIDE 102 mmol/L (97-110); CREATININE 0.77 mg/dl (0.44-1.00); Estimated GFR > 60 mL/min (>60); GLUCOSE 88 mg/dl (70-220); POTASSIUM 3.5 mmol/L (3.5-5.1); SODIUM 137 mmol/L (135-144); TOTAL PROTEIN 6.2 g/dl (6.1-8.1); URIC ACID 5.6 mg/dl (3.1-7.9)
[2019-06-19] MEDS: SENNA/DOCUSATE NA (8.6MG/50MG) TAB PO ×2 (09:03→21:14)
[2019-06-19] MEDS: NIFEdipine (XL) 30 MG TAB PO ×2 (09:05→21:14)
[2019-06-19] MEDS: FERROUS SULFATE (EC) 325 MG TAB PO (09:36)
[2019-06-19] MEDS: ASCORBIC ACID 500 MG TAB PO (09:36)
[2019-06-19] MEDS ORDERED: DIPHENHYDRAMINE 25 MG CAP PO (11:00)
[2019-06-19 11:14] LABS: ANISOCYTOSIS 1+ (0-0); BAND NEUTROPHILS % (M) 4 % (0-4); BURR CELLS 1+ (0-0); ERYTHROBLAST% (NRBC) (M) 1 % (0-0); GIANT THROMBO% (M) 1 % (0-0); LYMPHOCYTES % (M) 26 % (15-51); METAMYELOCYTES #M 0.2 10^3/ul (0.0-0.0); METAMYELOCYTES %M 1 % (0-0); MONOCYTE #M 1.8 10^3/ul (0.3-0.9); MONOCYTES % (M) 7 % (0-11); MYELOCYTES #M 0.5 10^3/ul (0.0-0.0); MYELOCYTES % (M) 2 % (0-0); PLATELET ESTIMATE NORMAL; POIKILOCYTOSIS 1+ (0-0); POLYCHROMASIA 1+ (0-0); SEG NEUT #M 16.5 10^3/ul (1.6-7.5); SEGMENTED NEUTROPHILS (M) % 60 % (39-77); SMUDGE%M 4 % (0-0)
[2019-06-19] MEDS: DIPHENHYDRAMINE 25 MG CAP PO (12:04)
[2019-06-19] MEDS: DOXYLAMINE SUCCINATE 25 MG TABLET PO (21:15)
[2019-06-20] MEDS: OXYCODONE/ACETAMINOPHEN (5/325) TAB PO ×2 (04:50→21:50)
[2019-06-20] MEDS: IBUPROFEN 800 MG TAB PO ×3 (05:54→22:00)
[2019-06-20 06:13] LABS: ABNORMAL IP MESSAGE 1; HEMATOCRIT 31.1 % (37.0-47.0); HEMOGLOBIN 10.3 g/dl (12.0-16.0); MEAN CORPUSCULAR HEMOGLOBIN 33.1 pg (29.0-33.0); MEAN CORPUSCULAR HGB CONC 33.1 g/dl (32.0-37.0); MEAN PLATELET VOLUME 9.7 fl (7.4-10.4); PLATELET COUNT 396 10^3/UL (140-415); RED BLOOD COUNT 3.11 10^6/ul (4.20-5.40); RED CELL DISTRIBUTION WIDTH 12.3 % (11.5-14.5)
[2019-06-20 06:13] LABS: WHITE BLOOD COUNT 26.3 10^3/ul (4.8-10.8)
[2019-06-20 06:17] LABS: ADD MAN DIFF? YES; POSITIVE DIFF @See below
[2019-06-20 07:10] LABS: ALANINE AMINOTRANSFERASE 156 IU/L (13-69); ALBUMIN 3.1 g/dl (3.3-4.9); ALBUMIN/GLOBULIN RATIO 0.93; ALKALINE PHOSPHATASE 130 IU/L (42-121); ANION GAP 5 (5-13); ASPARTATE AMINO TRANSFERASE 36 IU/L (15-46); BILIRUBIN,INDIRECT 0.2 mg/dl (0-1.1); BILIRUBIN,TOTAL 0.2 mg/dl (0.2-1.3); BLOOD UREA NITROGEN 9 mg/dl (7-20); CALCIUM 8.5 mg/dl (8.4-10.2); CARBON DIOXIDE 27 mmol/L (21-31); CHLORIDE 106 mmol/L (97-110); CREATININE 0.63 mg/dl (0.44-1.00); Estimated GFR > 60 mL/min (>60); GLUCOSE 85 mg/dl (70-220); POTASSIUM 3.4 mmol/L (3.5-5.1); SODIUM 138 mmol/L (135-144); TOTAL PROTEIN 6.4 g/dl (6.1-8.1)
[2019-06-20 07:43] LABS: ANISOCYTOSIS 1+ (0-0); BAND NEUTROPHILS #M 0.5 10^3/ul (0.0-0.6); BAND NEUTROPHILS % (M) 2 % (0-4); BURR CELLS 1+ (0-0); EOSINOPHILS % (M) 4 % (0-7); LYMPHOCYTES #M 4.4 10^3/ul (0.8-2.9); LYMPHOCYTES % (M) 17 % (15-51); METAMYELOCYTES #M 0.2 10^3/ul (0.0-0.0); METAMYELOCYTES %M 1 % (0-0); MONOCYTE #M 2.6 10^3/ul (0.3-0.9); MONOCYTES % (M) 10 % (0-11); PLATELET ESTIMATE NORMAL; POIKILOCYTOSIS 1+ (0-0); SEG NEUT #M 17.5 10^3/ul (1.6-7.5); SEGMENTED NEUTROPHILS (M) % 66 % (39-77); SMUDGE%M 25 % (0-0)
[2019-06-20] MEDS: SENNA/DOCUSATE NA (8.6MG/50MG) TAB PO ×2 (09:11→21:36)
[2019-06-20] MEDS: ASCORBIC ACID 500 MG TAB PO (09:11)
[2019-06-20] MEDS: NIFEdipine (XL) 30 MG TAB PO ×2 (09:11→21:36)
[2019-06-20] MEDS: FERROUS SULFATE (EC) 325 MG TAB PO (09:11)
[2019-06-20] MEDS: LANOLIN HPA 1 PKT TOP (13:49)
[2019-06-20] MEDS: DOXYLAMINE SUCCINATE 25 MG TABLET PO (21:49)
[2019-06-21] MEDS: IBUPROFEN 800 MG TAB PO ×3 (05:56→21:41)
[2019-06-21 07:58] LABS: ADD MAN DIFF? NO
[2019-06-21 08:03] LABS: ABNORMAL IP MESSAGE 1; BASOPHIL # 0.1 10^3/ul (0.0-0.1); BASOPHILS % 0.6 % (0.0-2.0); EOSINOPHILS # 0.6 10^3/ul (0.0-0.5); EOSINOPHILS % 2.8 % (0.0-7.0); HEMATOCRIT 32.2 % (37.0-47.0); HEMOGLOBIN 10.8 g/dl (12.0-16.0); LYMPHOCYTES # 6.3 10^3/ul (0.8-2.9); LYMPHOCYTES % 29.6 % (15.0-51.0); MEAN CORPUSCULAR HGB CONC 33.5 g/dl (32.0-37.0); MEAN CORPUSCULAR VOLUME 101.3 fl (82.0-101.0); MEAN PLATELET VOLUME 9.4 fl (7.4-10.4); MONOCYTE # 1.6 10^3/ul (0.3-0.9); MONOCYTES % 7.5 % (0.0-11.0); NEUTROPHIL # 12.3 10^3/ul (1.6-7.5); NEUTROPHILS % 58.1 % (39.0-77.0); PLATELET COUNT 431 10^3/UL (140-415); RED BLOOD COUNT 3.18 10^6/ul (4.20-5.40); RED CELL DISTRIBUTION WIDTH 12.6 % (11.5-14.5)
[2019-06-21 08:03] LABS: WHITE BLOOD COUNT 21.1 10^3/ul (4.8-10.8)
[2019-06-21 08:23] LABS: ALANINE AMINOTRANSFERASE 122 IU/L (13-69); ALBUMIN 2.9 g/dl (3.3-4.9); ALBUMIN/GLOBULIN RATIO 0.82; ALKALINE PHOSPHATASE 123 IU/L (42-121); ANION GAP 4 (5-13); ASPARTATE AMINO TRANSFERASE 44 IU/L (15-46); BILIRUBIN,INDIRECT 0.6 mg/dl (0-1.1); BILIRUBIN,TOTAL 0.6 mg/dl (0.2-1.3); BLOOD UREA NITROGEN 14 mg/dl (7-20); CALCIUM 8.4 mg/dl (8.4-10.2); CARBON DIOXIDE 28 mmol/L (21-31); CHLORIDE 105 mmol/L (97-110); CREATININE 0.69 mg/dl (0.44-1.00); Estimated GFR > 60 mL/min (>60); GLUCOSE 80 mg/dl (70-220); LACTATE DEHYDROGENASE 474 IU/L (313-618); POTASSIUM 3.2 mmol/L (3.5-5.1); SODIUM 137 mmol/L (135-144); TOTAL PROTEIN 6.4 g/dl (6.1-8.1); URIC ACID 5.5 mg/dl (3.1-7.9)
[2019-06-21 08:25] LABS: POSITIVE DIFF @See below
[2019-06-21] MEDS: SENNA/DOCUSATE NA (8.6MG/50MG) TAB PO ×2 (08:31→21:41)
[2019-06-21] MEDS: NIFEdipine (XL) 30 MG TAB PO ×2 (08:31→21:42)
[2019-06-21] MEDS: FERROUS SULFATE (EC) 325 MG TAB PO (08:32)
[2019-06-21] MEDS: ASCORBIC ACID 500 MG TAB PO (08:32)
[2019-06-21] MEDS: DOXYLAMINE SUCCINATE 25 MG TABLET PO (21:42)
[2019-06-22] MEDS: IBUPROFEN 800 MG TAB PO ×2 (05:32→13:41)
[2019-06-22 08:07] LABS: ADD MAN DIFF? NO
[2019-06-22 08:11] LABS: ABNORMAL IP MESSAGE 1; BASOPHIL # 0.1 10^3/ul (0.0-0.1); BASOPHILS % 0.6 % (0.0-2.0); EOSINOPHILS # 0.5 10^3/ul (0.0-0.5); HEMATOCRIT 30.8 % (37.0-47.0); LYMPHOCYTES # 5.1 10^3/ul (0.8-2.9); LYMPHOCYTES % 30.8 % (15.0-51.0); MEAN CORPUSCULAR HGB CONC 32.5 g/dl (32.0-37.0); MEAN CORPUSCULAR VOLUME 101.7 fl (82.0-101.0); MEAN PLATELET VOLUME 9.7 fl (7.4-10.4); MONOCYTE # 1.5 10^3/ul (0.3-0.9); MONOCYTES % 8.8 % (0.0-11.0); NEUTROPHIL # 9.2 10^3/ul (1.6-7.5); NEUTROPHILS % 55.8 % (39.0-77.0); PLATELET COUNT 447 10^3/UL (140-415); RED BLOOD COUNT 3.03 10^6/ul (4.20-5.40); RED CELL DISTRIBUTION WIDTH 12.9 % (11.5-14.5)
[2019-06-22 08:11] LABS: WHITE BLOOD COUNT 16.5 10^3/ul (4.8-10.8)
[2019-06-22 08:15] LABS: POSITIVE DIFF @See below
[2019-06-22] MEDS: SENNA/DOCUSATE NA (8.6MG/50MG) TAB PO (08:33)
[2019-06-22] MEDS: ASCORBIC ACID 500 MG TAB PO (08:33)
[2019-06-22] MEDS: NIFEdipine (XL) 30 MG TAB PO (08:33)
[2019-06-22] MEDS: FERROUS SULFATE (EC) 325 MG TAB PO (08:33)
== END 2019-06-22 18:45 | disposition home or self-care (01) | DRG 788 ==
LOC: OBT 18:25 → L-D 06-06 06:41 → PP1 06-16 02:07 → L-D 18:25 → OBT 20:40 → L-D 06-15 19:28
PROVIDERS: Obstetrics & Gynecology
PROC: 10D00Z1 Extraction of Products of Conception, Low, Open Approach (ICD-10-PCS; principal; 2019-06-15)
DX: O14.13 Severe pre-eclampsia, third trimester (principal); Z3A.32 32 weeks gestation of pregnancy; Z37.0 Single live birth; O26.893 Other specified pregnancy related conditions, third trimester; R94.5 Abnormal results of liver function studies; O99.345 Other mental disorders complicating the puerperium; F41.9 Anxiety disorder, unspecified; D72.829 Elevated white blood cell count, unspecified; O90.89 Other complications of the puerperium, not elsewhere classified; O32.8XX0 Maternal care for other malpresentation of fetus, not applicable or unspecified; Z3A.33 33 weeks gestation of pregnancy
CPT/HCPCS: 71046; 76815; 80053; 81270; 82575; 83615; 83735; 84112; 84156; 84560; 85025; 85384; 85610; 85730; 86592; 86850; 86900; 86901; 87340; 88307; 93005; 93306; 99464